=== PATIENT | male | born 1955 | race Caucasian/White ===

== ENCOUNTER → 2025-04-18 09:01 | Outpatient (REF) | payer MEDICARE, BC, SELFPAY | LOC: RAD 09:01 | PROVIDERS: ATTENDING PHYSICIAN Family Medicine | DX: G89.29 Other chronic pain (principal) | CPT/HCPCS: 73564 ==

== ENCOUNTER → 2025-09-08 11:25 | Outpatient (REF) | payer MEDICARE, BC, SELFPAY | LOC: RAD 11:25 | PROVIDERS: ATTENDING PHYSICIAN Family Medicine | DX: M25.571 Pain in right ankle and joints of right foot (principal); G89.29 Other chronic pain | CPT/HCPCS: 73610 ==